=== PATIENT | female | born 1955 | race African-American/Black ===

== ENCOUNTER 2024-10-31 16:45 | Emergency (ER) | payer BC ==
[~2024-10-31] VITALS: Ht 154.9 cm; Wt 77.0 kg
[2024-10-31 17:00] VITALS: O2SAT 98
[2024-10-31 17:53] LABS: BASOPHILS % 0.9 % (0.0-2.0); EOSINOPHILS % 3.4 % (0.0-5.0); HEMATOCRIT. 35.9 % (36.0-48.0); HEMOGLOBIN. 12.1 g/dL (12.0-16.0); LYMPHOCYTES % 33.7 % (20.0-50.0); MEAN CORPUSCULAR HEMOGLOBIN 27.4 pg (28.0-32.0); MEAN CORPUSCULAR HGB CONC 33.6 g/dL (31.0-37.0); MEAN CORPUSCULAR VOLUME 81.5 fL (81.0-99.0); MONOCYTES % 8.8 % (2.0-8.0); NEUTROPHILS % 53.2 % (40.0-76.0); PLATELET 208 x1000/uL (130-400); RED BLOOD CELL COUNT 4.41 mill/uL (4.2-5.4); RED CELL DISTRIBUTION WIDTH 15.5 % (11.6-14.6); WHITE BLOOD COUNT 7.6 x1000/uL (4.5-11.0)
[2024-10-31 18:01] LABS: CHLORIDE 106 mEq/L (98-107); POTASSIUM 4.6 mEq/L (3.5-5.1); SODIUM 139 mEq/L (136-145)
[2024-10-31 18:02] LABS: CALCIUM 9.4 mg/dL (8.7-10.4); CARBON DIOXIDE 28 mEq/L (21-32)
[2024-10-31 18:07] LABS: CREATININE 1.1 mg/dL (0.6-1.0); GLUCOSE 120 mg/dL (70-105); TROPONIN I HIGH SENSITIVITY 17 ng/L (3.0-34); UREA NITROGEN BLOOD 10 mg/dL (9-23)
[2024-10-31] MEDS: AMLODIPINE 10MG TABLET PO NR (19:20)
[2024-10-31] MEDS: LISINOPRIL 20MG TABLET PO NR (19:20)
[2024-10-31 21:06] LABS: TROPONIN I HIGH SENSITIVITY 17 ng/L (3.0-34)
[2024-10-31 21:52] VITALS: BP 154/76; PULSE 82; RESP 18; TEMP 36.7; O2SAT 100
== END 2024-10-31 21:56 | disposition home or self-care (01) ==
LOC: ER 16:57
DX: I10 Essential (primary) hypertension (principal); Z79.899 Other long term (current) drug therapy
CPT/HCPCS: 36415; 80048; 84484; 85025; 93005; 99285